=== PATIENT | female | born 1950 | race Caucasian/White ===

== ENCOUNTER → 2017-01-06 | Outpatient (CLI) | payer OTHER ==
[~2017-01-06] MED LIST: ACAR25TA2 PO; ASPI-496 PO; ATEN50TA41 PO; BUPR150T73 PO; CALC1CAP8 PO; CARV-39 PO; CHOL100018 PO; CHOL10003 PO; CYCL-259 PO; FENO160T PO; GEMF600T3 PO; GLIM2TAB2 PO; GLIP10TA13 PO; HYDR-3240 PO; HYDR25TA6 PO; INSU100C5 SQ-INSULIN; INSU100V13 SC; METF10002 PO; METO50TA82 PO; OMEP20TA62 PO; OXYC-302 PO; PARO10TA24 PO; PERCOCET PO; ROSU20TA PO; SIMV40TA3 PO; SITA100T PO; TICA90TA PO; VALS80TA PO; VALS80TA3 PO; VITA400C43 PO; VITAMIN E PO
== END | disposition home or self-care (01) ==
LOC: CFH 14:38
PROVIDERS: ATTEND Internal Medicine Cardiovascular Disease
DX: I08.3 Combined rheumatic disorders of mitral, aortic and tricuspid valves (principal); I25.10 Atherosclerotic heart disease of native coronary artery without angina pectoris; I10 Essential (primary) hypertension; E11.9 Type 2 diabetes mellitus without complications; Z95.5 Presence of coronary angioplasty implant and graft
CPT/HCPCS: 93306

== ENCOUNTER → 2017-01-11 | Outpatient (CLI) | payer OTHER ==
[~2017-01-11] MED LIST changes: +REGADENOSON 0.4 MG/5 ML SYRINGE ONE; +VITA400C40 PO; -VITA400C43 PO
== END | disposition home or self-care (01) ==
LOC: CFH 11:59
PROVIDERS: ATTEND Internal Medicine Cardiovascular Disease
DX: I25.10 Atherosclerotic heart disease of native coronary artery without angina pectoris (principal); I10 Essential (primary) hypertension; E11.9 Type 2 diabetes mellitus without complications; E78.5 Hyperlipidemia, unspecified
CPT/HCPCS: 78452; 93017; A9502; J2785

== ENCOUNTER → 2018-01-13 | Outpatient (CLI) | payer OTHER ==
[~2018-01-13] MED LIST changes: +CHOL100012 PO; -CHOL100018 PO; -PARO10TA24 PO; +PARO10TA56 PO; -VALS80TA PO; +VALS80TA29 PO; -VITA400C40 PO; +VITA400C43 PO
== END | disposition home or self-care (01) ==
LOC: CFH 07:23
PROVIDERS: ATTEND Internal Medicine Cardiovascular Disease
DX: I21.19 ST elevation (STEMI) myocardial infarction involving other coronary artery of inferior wall (principal); I10 Essential (primary) hypertension
CPT/HCPCS: 78452; 93017; A9502; J2785

== ENCOUNTER → 2019-01-15 | Outpatient (CLI) | payer OTHER ==
[~2019-01-15] MED LIST changes: -GEMF600T3 PO; +GEMF600T8 PO; -REGADENOSON 0.4 MG/5 ML SYRINGE ONE; -ROSU20TA PO; +ROSU20TA2 PO; -VALS80TA29 PO; +VALS80TA30 PO
== END | disposition home or self-care (01) ==
LOC: CVU 12:47
PROVIDERS: ATTEND Internal Medicine Cardiovascular Disease
DX: I08.2 Rheumatic disorders of both aortic and tricuspid valves (principal); I25.10 Atherosclerotic heart disease of native coronary artery without angina pectoris; I10 Essential (primary) hypertension; E11.9 Type 2 diabetes mellitus without complications
CPT/HCPCS: 93306

== ENCOUNTER 2019-02-09 07:06 | Outpatient (CLI) | payer OTHER | END 2019-02-09 23:59 | disposition home or self-care (01) | LOC: CVU 07:06 | PROVIDERS: ATTEND Internal Medicine Cardiovascular Disease | DX: I65.22 Occlusion and stenosis of left carotid artery (principal) | CPT/HCPCS: 93880 ==

== ENCOUNTER 2020-01-07 06:53 | Outpatient (CLI) | payer OTHER ==
[~2020-01-07 06:53] MED LIST changes: -GLIM2TAB2 PO; +GLIM2TAB7 PO; +SIMV40TA20 PO; -SIMV40TA3 PO
[2020-01-07] MEDS ORDERED: REGADENOSON 0.4 MG/5 ML SYRINGE ONE (07:29)
== END 2020-01-07 23:59 | disposition home or self-care (01) ==
LOC: CFH 06:53
PROVIDERS: ATTEND Internal Medicine Cardiovascular Disease
DX: I08.3 Combined rheumatic disorders of mitral, aortic and tricuspid valves (principal); I21.29 ST elevation (STEMI) myocardial infarction involving other sites; I27.21 Secondary pulmonary arterial hypertension
CPT/HCPCS: 78452; 93017; 93306; A9502; J2785

== ENCOUNTER → 2020-03-12 | Outpatient (CLI) | payer OTHER | END | disposition home or self-care (01) | LOC: CVU 10:44 | PROVIDERS: ATTEND Internal Medicine Cardiovascular Disease | DX: I65.22 Occlusion and stenosis of left carotid artery (principal) | CPT/HCPCS: 93880 ==

== ENCOUNTER → 2021-01-27 | Outpatient (CLI) | payer OTHER ==
[~2021-01-27] MED LIST changes: -CYCL-259 PO; +CYCL10TA2 PO; +GEMF-31 PO; -GEMF600T8 PO; +HYDR-2214 PO; -HYDR-3240 PO; -OXYC-302 PO; +OXYC1TAB14 PO
== END | disposition home or self-care (01) ==
LOC: CVU 12:45
PROVIDERS: ATTEND Registered Nurse
DX: I65.23 Occlusion and stenosis of bilateral carotid arteries (principal)
CPT/HCPCS: 93880